=== PATIENT | male | born 1990 | race Caucasian/White ===

== ENCOUNTER 2018-11-01 02:43 | Emergency (ER) | payer MEDICAID ==
[~2018-11-01] VITALS: Ht 177.8 cm; Wt 74.7 kg
[~2018-11-01 02:43] MED LIST: BAC15O TP
[2018-11-01 02:46] VITALS: BP 132/57
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
--- NOTE | 2018-11-01 03:35 | NUR ---
FOR [facility].
[2018-11-01] MEDS ORDERED: LIDOcaine 1% w/epiNEPHrine 1:200,000 30ml vial IM ONE (03:45)
[2018-11-01] MEDS ORDERED: TETanus/Pertussis (Acell)/Diphther VAC/PF (Tdap-Adult) 0.5ml syringe IM ONE (03:45)
[2018-11-01] MEDS ORDERED: AMOX-422 PO (03:47)
[2018-11-01] MEDS ORDERED: NAPR-56 PO (03:48)
[2018-11-01] MEDS ORDERED: HYDR-4353 PO (03:48)
== END 2018-11-01 05:27 | disposition home or self-care (01) ==
LOC: ER 02:44
DX: S02.2XXA Fracture of nasal bones, initial encounter for closed fracture (principal); S02.5XXA Fracture of tooth (traumatic), initial encounter for closed fracture; S01.21XA Laceration without foreign body of nose, initial encounter; S00.11XA Contusion of right eyelid and periocular area, initial encounter; F10.129 Alcohol abuse with intoxication, unspecified; F12.90 Cannabis use, unspecified, uncomplicated; F17.210 Nicotine dependence, cigarettes, uncomplicated; Z56.0 Unemployment, unspecified; Z79.899 Other long term (current) drug therapy; Y04.0XXA Assault by unarmed brawl or fight, initial encounter; Y93.89 Activity, other specified; Y92.89 Other specified places as the place of occurrence of the external cause; Y99.9 Unspecified external cause status; Y90.9 Presence of alcohol in blood, level not specified
CPT/HCPCS: 12011; 21315; 70486; 90471; 99284

== ENCOUNTER 2018-11-09 12:17 | Emergency (ER) | payer MEDICAID ==
[~2018-11-09] VITALS: Ht 177.8 cm; Wt 75.0 kg
[~2018-11-09 12:17] MED LIST changes: +AMOX-422 PO; +NAPR-56 PO
[2018-11-09 12:41] VITALS: BP 122/82
== END 2018-11-09 13:27 | disposition home or self-care (01) ==
LOC: ER 12:18
DX: S01.21XD Laceration without foreign body of nose, subsequent encounter (principal); F12.90 Cannabis use, unspecified, uncomplicated; F10.99 Alcohol use, unspecified with unspecified alcohol-induced disorder; Z86.14 Personal history of Methicillin resistant Staphylococcus aureus infection; Z56.0 Unemployment, unspecified; Z60.2 Problems related to living alone; Z79.899 Other long term (current) drug therapy; Y04.0XXD Assault by unarmed brawl or fight, subsequent encounter; Y90.9 Presence of alcohol in blood, level not specified
CPT/HCPCS: 99281

== ENCOUNTER 2019-08-24 16:57 | Emergency (ER) | payer MEDICAID ==
[~2019-08-24] VITALS: Ht 177.8 cm; Wt 80.0 kg
[~2019-08-24 16:57] MED LIST changes: -AMOX-422 PO; -NAPR-56 PO
[2019-08-24 17:12] VITALS: BP 140/84
== END 2019-08-24 17:34 | disposition left against medical advice (07) ==
LOC: ER 16:57
DX: M79.676 Pain in unspecified toe(s) (principal); Z53.21 Procedure and treatment not carried out due to patient leaving prior to being seen by health care provider

== ENCOUNTER 2020-05-15 10:54 | Emergency (ER) | payer MEDICAID ==
[~2020-05-15] VITALS: Ht 177.8 cm; Wt 66.0 kg
[2020-05-15 10:59] VITALS: BP 145/91
[2020-05-15 12:35] LABS: BASOPHILS % (AUTO) 0.4 % (0-1); EOSINOPHILS # (AUTO) 0.1 X10'3 (0-0.9); HEMATOCRIT 46.3 % (42.0-52.0); HEMOGLOBIN 15.6 g/dl (14.0-17.9); LYMPHOCYTES # (AUTO) 1.7 X10'3 (1.1-4.8); LYMPHOCYTES % (AUTO) 21.1 % (21-51); MEAN CORPUSCULAR HEMOGLOBIN 32.6 PG (27.0-31.0); MEAN CORPUSCULAR HGB CONC 33.7 g/dL (33.0-36.5); MEAN CORPUSCULAR VOLUME 96.9 FL (78-98); MEAN PLATELET VOLUME 8.5 FL (7.4-10.4); MONOCYTES # (AUTO) 0.8 X10'3 (0-0.9); MONOCYTES % (AUTO) 9.6 % (2-12); NEUTROPHILS # (AUTO) 5.4 X10'3 (1.8-7.7); NEUTROPHILS % (AUTO) 67.9 % (42-75); PLATELET COUNT 312 X10'3 (140-440); RED BLOOD COUNT 4.78 X10'6 (4.70-6.10); RED CELL DISTRIBUTION WIDTH 13.7 % (11.5-14.5); WHITE BLOOD COUNT 7.9 X10'3 (4.5-11.0)
[2020-05-15 12:50] LABS: ALANINE AMINOTRANSFERASE 33 U/L (12-78); ALBUMIN 4.1 G/DL (3.4-5.0); ALBUMIN/GLOBULIN RATIO 0.9 (1.1-1.5); ALKALINE PHOSPHATASE 73 IU/L (46-116); ANION GAP 8 (8-16); ASPARTATE AMINO TRANSFERASE 25 U/L (10-37); BILIRUBIN,TOTAL 0.5 MG/DL (0.1-1.0); BLOOD UREA NITROGEN 11 MG/DL (7-18); BUN/CREATININE RATIO 12.8 (5.4-32.0); CALCIUM 9.7 MG/DL (8.5-10.1); CHLORIDE 99 MMOL/L (99-107); CREATININE 0.86 MG/DL (0.60-1.10); GLUCOSE 96 MG/DL (70-104); POTASSIUM 3.3 MMOL/L (3.5-5.1); SODIUM 135 MMOL/L (135-145); TOTAL CARBON DIOXIDE 28.5 MMOL/L (24-32); TOTAL PROTEIN 8.8 G/DL (6.4-8.2); eGFR > 90 ML/MIN
[2020-05-15] MEDS ORDERED: SULF1TAB49 PO (13:35)
[2020-05-15] MEDS ORDERED: CEPH-585 PO (13:35)
== END 2020-05-15 13:42 | disposition home or self-care (01) ==
LOC: ER 10:54
DX: L03.116 Cellulitis of left lower limb (principal); F17.200 Nicotine dependence, unspecified, uncomplicated; Z86.14 Personal history of Methicillin resistant Staphylococcus aureus infection
CPT/HCPCS: 36415; 73630; 80053; 83605; 85025; 99284

== ENCOUNTER 2023-04-12 06:14 | Emergency (ER) | payer MEDICAID ==
[~2023-04-12] VITALS: Ht 177.8 cm; Wt 81.8 kg
[2023-04-12 06:19] VITALS: BP 122/56; PULSE 83; RESP 16; TEMP 98.1; O2SAT 100
[2023-04-12] MEDS ORDERED: IBUP-1986 PO (08:04)
== END 2023-04-12 08:20 | disposition home or self-care (01) ==
LOC: ER 06:14
DX: S93.492A Sprain of other ligament of left ankle, initial encounter (principal); F17.200 Nicotine dependence, unspecified, uncomplicated; Z79.899 Other long term (current) drug therapy
CPT/HCPCS: 73610; 73630; 99284; A6449

== ENCOUNTER 2023-04-18 11:25 | Emergency (ER) | payer MEDICAID ==
[~2023-04-18 11:25] MED LIST changes: +IBUP-1986 PO
== END 2023-04-18 11:43 | disposition left against medical advice (07) ==
LOC: ER 11:26
DX: Z53.21 Procedure and treatment not carried out due to patient leaving prior to being seen by health care provider (principal)

== ENCOUNTER 2024-09-16 09:51 | Emergency (ER) | payer MEDICAID ==
[~2024-09-16] VITALS: Ht 177.8 cm; Wt 75.6 kg
[2024-09-16 10:01] VITALS: BP 136/76; PULSE 88; TEMP 97.7; O2SAT 99
--- NOTE | 2024-09-16 10:15 | Physician Documentation ---
History of Present Illness ~ Chief Complaint: Arm Pain Stated Complaint: R ARM PAIN Time Seen by MD: 10:15 Primary Medical Doctor: none HPI This is a 33-year-old male who presents with pain and swelling his right elbow after falling off of a skateboard yesterday landing on his right elbow, patient reports no other injuries including no head strike. Patient reports it is difficult to move the arm though has full sensation to his fingers of the right hand. Tetanus within 5 years: Yes (2018) Medication Reconciliation Allergies: Coded Allergies: No Known Allergies (Unverified , 02/12/13) Scheduled Bacitracin Oint* (Bacitracin Oint*), 1 APPLIC TP TID Ibuprofen (Ibuprofen), 1 TAB PO Q8H Ibuprofen (Ibuprofen), 1 TAB PO Q8H Naloxone HCl (Narcan), 1 SPRAYS BOTHNARES ONCE Scheduled PRN Hydrocodone Bit/Acetaminophen 5/325 MG ([place] 5/325 MG), 1 TAB PO Q6H PRN for pain Past Medical History Past Medical History: Cellulitis, MRSA Abscess Past Surgical History: no surgical history Alcohol Use: None Drug Use: none Lives with: Alone Lives In: Home Occupation: unemployed Review of Systems ROS Right elbow pain as stated above in the HPI, otherwise all systems are reviewed and negative. Physical Exam Vital Signs: Temperature: 97.7, Source: Temporal, Heart Rate: 88, Respiratory Rate: 16, BP: 136/76, Pulse Oximetry: 99, Weight: 75.600 Oxygen Flow Rate: 0 Physical Exam VITALS: Reviewed and as above. GENERAL: Alert, nontoxic appearing, no apparent distress. RESPIRATORY: No increased work of breathing, no respiratory distress, speaking in full clear sentences CV: Brisk capillary refill and strong radial pulse in right arm. MUSCULOSKELETAL: Swelling and tenderness to the right elbow, no erythema, no ecchymosis. Range of motion and sensation intact in right hand and fingers. No tenderness to palpation to right shoulder, right forearm, right hand or other limbs. Progress Results/Orders Results/Orders Orders - TANISHA ROSALES Elbow, Complete (3vw Min) (09/16/24 10:06) Ortho Orders (09/16/24 ) Completed Orders - TANISHA ROSALES Ketorolac Trometh 15mg/Ml Vial (Toradol (09/16/24 10:10) Elbow, Complete (3vw Min) (09/16/24 10:06) Hydrocodone/Apap 5/325mg Tab ([place] 5/32 (09/16/24 11:05) Vital Signs 09/16/24 09/16/24 09/16/24 10:01 10:38 11:07 Temp 97.7 Pulse 88 Resp 16 16 16 B/P (MAP) 136/76 Pulse Ox 99 O2 Flow Rate 0 EKG/XRAY/CT/US/VASC/MRI Bone/Soft Tissue X-Ray (Ext.) : Additional Comment X-ray right elbow Technique AP lateral and oblique views findings REASON FOR EXAM: Elbow Pain Post Fall INDICATION: Elbow Pain Post Fall FINDINGS: Nondisplaced fracture of the radial head. A positive fat pad sign is present indicating joint effusion IMPRESSION: 1. Nondisplaced fracture radial head Electronically Signed by:MARISSA CASE MD Date & Time: 09/16/24 1038 Dictated by: MARISSA CASE MD Dictation date and time: 09/16/24 1038 I have reviewed and agree with the radiology report. I have reviewed and interpreted the imaging as: Positive fat pad sign indicating occult fracture Medical Decision Making Findings This 33-year-old male presented with right elbow pain after a fall striking his right elbow, physical exam demonstrated swollen and tender right elbow, x-ray of the area demonstrated positive fat pad sign and a nondisplaced radial head fracture was observed. Patient was medicated for pain reporting adequate pain control and the elbow was placed in a splint in sling, plan is for patient follow up outpatient with on-call orthopedist. The right arm was neurovascularly intact prior to and after splinting. Patient is otherwise well- appearing with remainder of physical exam benign and no other injuries noted, patient appropriate for outpatient follow up. Patient provided contact information for orthopedist and follow up instructions which he verbalized understanding of. Patient provided home care instructions and return to care precautions which he verbalized understanding of. I have discussed with the patient the risks of addiction and overdose associated with use of opioids, including the increased risk of addiction to an opioid for an individual who is suffering from both mental and substance abuse disorders. I have discussed with the patient the danger of taking an opioid with a benzodiazepine, alcohol, or another central nervous system depressant. Additionally a dose of Narcan was prescribed Elbow Diff Dx:Considerations: Include: Abrasion, Arthritis, Contustion, Fracture-humerus, Gout, Hematoma, Laceration, Neurovascular injury, Olecranon bursitis, Open fracture, Osteomyelitis, Septic, Sprain Departure Time of Disposition: 11:12 Disposition: HOME / SELF CARE / HOMELESS Impression: Primary Impression: Radial head fracture, closed Qualified Codes: S52.124A - Nondisplaced fracture of head of right radius, initial encounter for closed fracture Condition: Improved Discharge Instructions: Radial Head Elbow Fracture Rehab, Radial Head Fracture, [id number] Additional Instructions: Please follow up with the orthopedist at the number provided. Please follow up with your primary care provider or the [facility] in the next few days. Please return to the emergency department for any new or worsening concerning symptoms including but not limited to increased pain and swelling to your arm, loss of f eeling in your hand, weakness or numbness in your hand, pain not controlled with prescribed medications. You may use [id number] ibuprofen and or Tylenol as needed for pain as directed by the [id number] packaging. For breakthrough pain you may use the prescribed [place], be aware that the [place] also contains the same active ingredient as Tylenol, so do not take more than the recommended amount of Tylenol as directed on the dekh-mys-occrpun packaging. You have been prescribed an opioid medication, there are risks of addiction and overdose associated with the use of opioids. The risk of addiction to an opioid for increases for those suffering both from mental health and substance use disorders. The use of an opioid while taking other central nervous system depressants including but not limited to benzodiazepines or alcohol, or other opioids increases the risk of serious side effects that can include overdose or respiratory depression that can lead to serious injury or . Also been prescribed a dose of Narcan that can help reverse opioid overdose. Referrals: NO PRIMARY CARE PROVIDER (PCP) FABRICIO MACHADO MD Prescriptions Naloxone HCl (Narcan) 4 Mg/Actuation Yeaddiss 1 SPRAYS BOTHNARES ONCE for 1 Day, #1 EA 0 Refills Prov: TANISHA ROSALES 09/16/24 Hydrocodone Bit/Acetaminophen 5/325 MG ([place] 5/325 MG) 5 Mg/325 Mg Tablet 1 TAB PO Q6H PRN for pain, #12 TAB Prov: TANISHA ROSALES 09/16/24 Ibuprofen (Ibuprofen) 800 Mg Tablet 1 TAB PO Q8H for pain for 10 Days, #30 TAB 0 Refills Prov: TANISHA ROSALES 09/16/24 Education Educated: Patient Educated regarding: diagnosis, treatment, prognosis, need for follow up Signature Scribe Signature: No scribe Attestation: The note accurately reflects work and decisions made by me.BRICE Lopez 09/16/24 20:11 TANISHA ROSALES Sep 16, 2024 10:15
[2024-09-16] MEDS: ketorolac trometh 15mg/ml vial 15 MG/ML ML IM ONE (10:38)
--- NOTE | 2024-09-16 10:40 | RADIOLOGY REPORT ---
X-ray right elbow Technique AP lateral and oblique views findings REASON FOR EXAM: Elbow Pain Post Fall INDICATION: Elbow Pain Post Fall FINDINGS: Nondisplaced fracture of the radial head. A positive fat pad sign is present indicating admaris nt effusion IMPRESSION: 1. Nondisplaced fracture radial head
[2024-09-16 11:07] VITALS: RESP 16
[2024-09-16] MEDS: HYDROcodone/acetaminophen 5mg/325mg tablet PO ONE (11:07)
[2024-09-16] MEDS ORDERED: IBUP-1986 PO (11:11)
[2024-09-16] MEDS ORDERED: HYDR-3965 PO (11:11)
[2024-09-16] MEDS ORDERED: NALO4SPR BOTHNARES (11:11)
== END 2024-09-16 11:55 | disposition home or self-care (01) ==
LOC: ER 09:53
DX: S52.124A Nondisplaced fracture of head of right radius, initial encounter for closed fracture (principal); V00.131A Fall from skateboard, initial encounter; Y93.51 Activity, roller skating (inline) and skateboarding; Y92.89 Other specified places as the place of occurrence of the external cause; Y99.8 Other external cause status
CPT/HCPCS: 29105; 73080; 96372; 99283; J1885; A4565; A6449